=== PATIENT | male | born 1940 | race Two or more races ===

== ENCOUNTER 2018-10-27 09:19 | Inpatient (IN) | payer MEDICARE ==
[~2018-10-27] VITALS: Ht 167.6 cm; Wt 79.9 kg
[2018-10-27] MEDS ORDERED: HYDRALAZINE 20MG/ML VIAL IV ONE ×2 (10:15→13:30)
[2018-10-27 10:26] LABS: BASOPHILS % 0.6 % (0.0-2.0); EOSINOPHILS % 0.8 % (0.0-5.0); HEMATOCRIT. 45.3 % (42.0-52.0); HEMOGLOBIN. 15.5 g/dL (14.0-18.0); LYMPHOCYTES % 15.2 % (20.0-50.0); MEAN CORPUSCULAR HEMOGLOBIN 32.4 pg (28.0-32.0); MEAN CORPUSCULAR VOLUME 94.3 fL (80.0-94.0); MEAN PLATELET VOLUME 9.5 fl (7.4-10.4); MONOCYTES % 7.6 % (2.0-8.0); NEUTROPHILS % 75.8 % (40.0-76.0); PLATELET 183 x1000/uL (130-400); RED CELL DISTRIBUTION WIDTH 13.5 % (11.6-14.6)
[2018-10-27 10:30] LABS: CHLORIDE 107 mEq/L (98-107)
[2018-10-27 10:33] LABS: PROTHROMBIN TIME 10.1 sec (9.6-11.0)
[2018-10-27] MEDS ORDERED: IOHEXOL-350 100 ML BOTTLE ONE (12:17)
[2018-10-27] MEDS ORDERED: ASPIRIN 325MG EC TABLET PO ONE (12:30)
[2018-10-27] MEDS ORDERED: CLONIDINE 0.2MG TABLET PO ONE (12:30)
[2018-10-27] MEDS ORDERED: ACETAMINOPHEN 325MG TABLET PO PRN (16:30)
[2018-10-27] MEDS ORDERED: HYDROCODONE/ACETAMINOPHEN 5/325MG TABLET PO PRN (16:30)
[2018-10-27] MEDS ORDERED: ONDANSETRON HCL 4MG/2ML INJ IV PRN (16:30)
[2018-10-27] MEDS ORDERED: IPRATROPIUM/ALBUTEROL 0.5-3(2.5)MG/3ML NEB INH PRN (16:30)
[2018-10-27] MEDS ORDERED: LOSARTAN POTASSIUM 50 MG TABLET PO NR (16:45)
[2018-10-27 17:22] LABS: CLARITY URINE CLEAR (CLEAR); COLOR URINE YELLOW (YELLOW); KETONES URINE NEGATIVE (NEGATIVE); LEUKOCYTE ESTERASE URINE NEGATIVE (NEGATIVE); NITRITE URINE NEGATIVE (NEGATIVE); OCCULT BLOOD URINE NEGATIVE (NEGATIVE); PH URINE 5.5 (4.5-8.0); PROTEIN URINE NEGATIVE (NEGATIVE); SPECIFIC GRAVITY URINE 1.009 (1.005-1.030); UROBILINOGEN URINE 0.2 E.U./dL (0.2-1.0)
[2018-10-27 17:31] LABS: *AMPHETAMINES SCREEN URINE NEGATIVE (NEGATIVE); *BARBITURATES SCREEN URINE NEGATIVE (NEGATIVE); *BENZODIAZEPINES SCREEN URINE NEGATIVE (NEGATIVE); *COCAINE SCREEN URINE NEGATIVE (NEGATIVE)
[2018-10-27 17:32] LABS: CANNABINOID URINE SCREEN NEGATIVE (NEGATIVE); METHADONE URINE SCREEN NEGATIVE (NEGATIVE); OPIATES URINE SCREEN PRESUMTIVE POSITIVE (NEGATIVE); PHENCYCLIDINE URINE SCREEN NEGATIVE (NEGATIVE)
[2018-10-27] MEDS: CLONIDINE 0.1MG TABLET PO PRN (19:22)
[2018-10-27 22:00] VITALS: BP_SYST 145; BP_DIAS 58; BP_DIAS 68
[2018-10-28] VITALS: BP 119/48
[2018-10-28 04:00] VITALS: BP 127/54
[2018-10-28 08:00] VITALS: BP 169/95
[2018-10-28] MEDS ORDERED: ASPIRIN 325MG EC TABLET PO SCH (09:00)
[2018-10-28] MEDS ORDERED: ENOXAPARIN 40MG/0.4ML SYR SUBCUT SCH (09:00)
[2018-10-28] MEDS ORDERED: ASPIRIN 81MG EC TABLET PO SCH (09:00)
[2018-10-28] MEDS: AMLODIPINE 5MG TABLET PO SCH ×3 (09:00→21:23)
[2018-10-28] MEDS: LOSARTAN POTASSIUM 50 MG TABLET PO SCH ×2 (10:24→21:23)
[2018-10-28] MEDS: CLONIDINE 0.1MG TABLET PO PRN (10:24)
[2018-10-28] MEDS: LISINOPRIL 20MG TABLET PO SCH (10:26)
[2018-10-28 12:00] VITALS: BP 121/76
[2018-10-28 12:27] LABS: BASOPHILS % 0.5 % (0.0-2.0); EOSINOPHILS % 1.9 % (0.0-5.0); HEMATOCRIT. 42.9 % (42.0-52.0); HEMOGLOBIN. 14.6 g/dL (14.0-18.0); LYMPHOCYTES % 18.3 % (20.0-50.0); MEAN CORPUSCULAR HEMOGLOBIN 32.2 pg (28.0-32.0); MEAN CORPUSCULAR VOLUME 94.9 fL (80.0-94.0); MEAN PLATELET VOLUME 9.8 fl (7.4-10.4); NEUTROPHILS % 69.3 % (40.0-76.0); PLATELET 181 x1000/uL (130-400); RED BLOOD CELL COUNT 4.52 mill/uL (4.7-6.1); RED CELL DISTRIBUTION WIDTH 13.5 % (11.6-14.6)
[2018-10-28 12:30] LABS: CHLORIDE 106 mEq/L (98-107)
[2018-10-28 12:39] LABS: LDL CHOLESTEROL 81 mg/dL (5-100)
[2018-10-28 12:42] LABS: CREATINE KINASE 269 IU/L (39-308); HDL CHOLESTEROL 69 mg/dL (40-59); T4 FREE 0.94 ng/dL (0.76-1.46)
[2018-10-28 16:00] VITALS: BP 130/82
[2018-10-28] MEDS: DEXAMETHASONE 4MG/ML 1ML VIAL IV SCH ×2 (17:49→23:09)
[2018-10-28 20:00] VITALS: BP 121/51
[2018-10-28] MEDS: ATORVASTATIN CALCIUM 40MG TABLET PO SCH (21:23)
[2018-10-29] VITALS (62 sets, daily range): BP systolic 90–177; BP diastolic 29–109
[2018-10-29] MEDS: DEXAMETHASONE 4MG/ML 1ML VIAL IV SCH ×3 (05:40→17:34)
[2018-10-29] MEDS ORDERED: NORMAL SALINE 0.9% 10 ML SYR ONE (06:49)
[2018-10-29] MEDS ORDERED: THROMBIN (BOVINE) 5000 UNITS/VIAL TOP ONE (06:49)
[2018-10-29] MEDS ORDERED: LIDOCAINE HCL/EPINEPHRINE 1%-EPI 1:100,000 20 ML VIAL ONE (06:50)
[2018-10-29] MEDS ORDERED: BACITRACIN 50,000 UNITS/VIAL ONE (06:50)
[2018-10-29] MEDS ORDERED: FENTANYL CITRATE/PF 50MCG/ML 2ML VIAL ONE (07:30)
[2018-10-29] MEDS ORDERED: MIDAZOLAM HCL 2 MG/2 ML VIAL ONE (07:30)
[2018-10-29] MEDS ORDERED: ONDANSETRON HCL 4MG/2ML INJ ONE (07:30)
[2018-10-29] MEDS ORDERED: PROPOFOL 200MG/20ML VIAL IV ONE (07:30)
[2018-10-29] MEDS ORDERED: DEXAMETHASONE 4MG/ML 1ML VIAL ONE (07:30)
[2018-10-29] MEDS ORDERED: NEOSTIGMINE METHYLSULFATE 1MG/ML 10 ML VIAL ONE (07:30)
[2018-10-29] MEDS ORDERED: GLYCOPYRROLATE 0.2 MG/ML 2ML VIAL ONE ×3 (07:30→09:19)
[2018-10-29] MEDS ORDERED: ROCURONIUM BROMIDE 10MG/ML VIAL 5ML IV ONE (07:30)
[2018-10-29] MEDS ORDERED: HYDROMORPHONE HCL/PF 2MG/ML CPJ IV PRN (09:00)
[2018-10-29] MEDS: LISINOPRIL 20MG TABLET PO SCH (09:00)
[2018-10-29] MEDS ORDERED: LABETALOL 5MG/ML SYR 20 MG/4 ML SYRINGE IV PRN (09:00)
[2018-10-29] MEDS: LOSARTAN POTASSIUM 50 MG TABLET PO SCH ×2 (09:00→21:13)
[2018-10-29] MEDS ORDERED: MEPERIDINE HCL/PF 25MG/ML CPJ IV PRN (09:00)
[2018-10-29] MEDS ORDERED: ONDANSETRON HCL 4MG/2ML INJ IV PRN (09:00)
[2018-10-29] MEDS: AMLODIPINE 5MG TABLET PO SCH ×2 (09:00→21:13)
[2018-10-29] MEDS ORDERED: CEFAZOLIN SODIUM 1000MG/VIAL ONE (09:01)
[2018-10-29] MEDS ORDERED: HYDROMORPHONE HCL/PF 2MG/ML (OR) ONE (09:01)
[2018-10-29] MEDS ORDERED: SODIUM CHLORIDE 0.9% 10ML VIAL ONE (09:01)
[2018-10-29] MEDS ORDERED: HYDROCODONE/APAP 7.5/325MG 1 TAB TABLET PO PRN (09:45)
[2018-10-29] MEDS ORDERED: HYDROMORPHONE PCA 10MG/50ML IV PRN (10:15)
[2018-10-29] MEDS ORDERED: LORAZEPAM 2MG/ML CPJ IV ONE (10:15)
[2018-10-29] MEDS ORDERED: NALOXONE INJ IV PRN (10:15)
[2018-10-29] MEDS ORDERED: ONDANSETRON INJ IV PRN (10:15)
[2018-10-29] MEDS ORDERED: DIPHENHYDRAMINE INJ IV PRN (10:15)
[2018-10-29] MEDS: NICARDIPINE 100 MG in SODIUM CHLORIDE 0.9% 60 ML IV PRN (10:44)
[2018-10-29] MEDS: MORPHINE SULFATE 4 MG/ML CPJ (NOT FOR IM USE) IV PRN (10:47)
[2018-10-29 12:13] LABS: HEMATOCRIT 42.7 % (42.0-52.0); HEMOGLOBIN 14.4 g/dL (14.0-18.0); MEAN CORPUSCULAR HEMOGLOBIN 32.5 pg (28.0-32.0); MEAN CORPUSCULAR VOLUME 96.4 fL (80.0-94.0); PLATELET 169 x1000/uL (130-400); RED BLOOD CELL COUNT 4.43 mill/uL (4.7-6.1); RED CELL DISTRIBUTION WIDTH 13.4 % (11.6-14.6)
[2018-10-29] MEDS ORDERED: DEXTROSE 50% WATER 50ML SYRINGE IV PRN (12:30)
[2018-10-29] MEDS: DEXT 5%/LACTATED RINGERS 1,000 ML IV SCH ×2 (12:33→17:34)
[2018-10-29 12:40] LABS: CHLORIDE 108 mEq/L (98-107)
[2018-10-29 13:16] LABS: BG BASE EXCESS -5.4 mmol/L (-2.0-2.0); BG CARBOXYHEMOGLOBIN 0.9 % (0.5-1.5); BG DEOXYHEMOGLOBIN 6.8 % (0.0-5.0); BG FRACTION INSPIRED OXYGEN 32; BG HCO3 ACT 21.1 mmol/L (22.0-26.0); BG METHEMOGLOBIN 0.3 % (0.0-1.5); BG OXYGEN SATURATION 93.1 % (92.0-98.5); BG PCO2 44.7 mmHg (35.0-45.0); BG PH 7.291 (7.350-7.450); BG PO2 74.6 mmHg (75.0-100.0); BG SAMPLE SITE A-LINE; BG TOTAL HEMOGLOBIN 14.4 g/dL (12.0-18.0); BG VENT MODE NASAL CANNULA
[2018-10-29] MEDS ORDERED: CEFAZOLIN SODIUM 1000MG/VIAL IV SCH (14:00)
[2018-10-29] MEDS: BLOOD SUGAR DIAGNOSTIC STRIP TEST SCH ×2 (16:42→21:13)
[2018-10-29] MEDS: INSULIN LISPRO 100 UNITS/ML SUBCUT SCH ×2 (16:50→21:14)
[2018-10-29] MEDS: CEFAZOLIN 1000MG PREMIX 50 ML IV SCH (17:34)
[2018-10-29 17:39] LABS: HEMATOCRIT. 42.4 % (42.0-52.0); HEMOGLOBIN. 14.2 g/dL (14.0-18.0); MEAN CORPUSCULAR HEMOGLOBIN 31.9 pg (28.0-32.0); MEAN CORPUSCULAR VOLUME 95.3 fL (80.0-94.0); MEAN PLATELET VOLUME 9.7 fl (7.4-10.4); PLATELET 164 x1000/uL (130-400); RED BLOOD CELL COUNT 4.44 mill/uL (4.7-6.1); RED CELL DISTRIBUTION WIDTH 13.3 % (11.6-14.6)
[2018-10-29 17:47] LABS: CHLORIDE 108 mEq/L (98-107)
[2018-10-29 18:36] LABS: PLATELET ESTIMATE NORMAL
[2018-10-29] MEDS: ATORVASTATIN CALCIUM 40MG TABLET PO SCH (21:12)
[2018-10-30] VITALS (58 sets, daily range): BP systolic 70–162; BP diastolic 26–98
[2018-10-30] MEDS: CEFAZOLIN 1000MG PREMIX 50 ML IV SCH ×3 (00:03→17:56)
[2018-10-30] MEDS: DEXAMETHASONE 4MG/ML 1ML VIAL IV SCH ×4 (00:03→18:21)
[2018-10-30] MEDS: DEXT 5%/LACTATED RINGERS 1,000 ML IV SCH (02:36)
[2018-10-30 05:30] LABS: HEMATOCRIT 43.9 % (42.0-52.0); HEMOGLOBIN 14.9 g/dL (14.0-18.0); MEAN CORPUSCULAR HEMOGLOBIN 32.3 pg (28.0-32.0); MEAN CORPUSCULAR VOLUME 95.2 fL (80.0-94.0); PLATELET 179 x1000/uL (130-400); RED BLOOD CELL COUNT 4.61 mill/uL (4.7-6.1); RED CELL DISTRIBUTION WIDTH 13.3 % (11.6-14.6)
[2018-10-30 05:37] LABS: CHLORIDE 108 mEq/L (98-107)
[2018-10-30] MEDS: INSULIN LISPRO 100 UNITS/ML SUBCUT SCH ×4 (06:16→20:31)
[2018-10-30] MEDS: BLOOD SUGAR DIAGNOSTIC STRIP TEST SCH ×4 (06:16→21:00)
[2018-10-30] MEDS: LISINOPRIL 20MG TABLET PO SCH (09:53)
[2018-10-30] MEDS: AMLODIPINE 5MG TABLET PO SCH (09:53)
[2018-10-30] MEDS: LOSARTAN POTASSIUM 50 MG TABLET PO SCH ×3 (09:53→20:30)
[2018-10-30] MEDS ORDERED: METOPROLOL TARTRATE 50MG TABLET PO SCH (10:30)
[2018-10-30] MEDS: CLONIDINE 0.1MG TABLET PO PRN (11:15)
[2018-10-30] MEDS: NICARDIPINE 100 MG in SODIUM CHLORIDE 0.9% 60 ML IV PRN (12:52)
[2018-10-30] MEDS: MORPHINE SULFATE 4 MG/ML CPJ (NOT FOR IM USE) IV PRN (20:29)
[2018-10-30] MEDS: ATORVASTATIN CALCIUM 40MG TABLET PO SCH (20:30)
[2018-10-30] MEDS: METOPROLOL TARTRATE 50MG TABLET PO SCH (21:00)
[2018-10-31] VITALS (18 sets, daily range): BP systolic 124–152; BP diastolic 59–114
[2018-10-31] MEDS: DEXAMETHASONE 4MG/ML 1ML VIAL IV SCH ×3 (00:22→18:00)
[2018-10-31] MEDS: CEFAZOLIN 1000MG PREMIX 50 ML IV SCH ×3 (00:22→17:00)
[2018-10-31] MEDS: MORPHINE SULFATE 4 MG/ML CPJ (NOT FOR IM USE) IV PRN ×3 (05:04→20:42)
[2018-10-31 05:51] LABS: HEMATOCRIT. 42.9 % (42.0-52.0); HEMOGLOBIN. 14.7 g/dL (14.0-18.0); MEAN CORPUSCULAR HEMOGLOBIN 32.5 pg (28.0-32.0); MEAN PLATELET VOLUME 10.3 fl (7.4-10.4); PLATELET 183 x1000/uL (130-400); RED BLOOD CELL COUNT 4.51 mill/uL (4.7-6.1); RED CELL DISTRIBUTION WIDTH 13.4 % (11.6-14.6)
[2018-10-31 05:57] LABS: CHLORIDE 106 mEq/L (98-107)
[2018-10-31] MEDS: BLOOD SUGAR DIAGNOSTIC STRIP TEST SCH ×5 (06:13→20:52)
[2018-10-31] MEDS: INSULIN LISPRO 100 UNITS/ML SUBCUT SCH ×4 (06:17→21:01)
[2018-10-31] MEDS: METOPROLOL TARTRATE 50MG TABLET PO SCH ×2 (09:39→20:42)
[2018-10-31] MEDS: AMLODIPINE 5MG TABLET PO SCH (09:40)
[2018-10-31] MEDS: LOSARTAN POTASSIUM 50 MG TABLET PO SCH ×2 (09:40→20:42)
[2018-10-31] MEDS: LISINOPRIL 20MG TABLET PO SCH (09:58)
[2018-10-31 12:52] LABS: PLATELET ESTIMATE NORMAL
[2018-10-31] MEDS: ATORVASTATIN CALCIUM 40MG TABLET PO SCH (20:42)
[2018-11-01] VITALS: BP 132/56
[2018-11-01] MEDS: DEXAMETHASONE 4MG/ML 1ML VIAL IV SCH ×4 (00:03→17:38)
[2018-11-01 04:00] VITALS: BP 148/64
[2018-11-01] MEDS: INSULIN LISPRO 100 UNITS/ML SUBCUT SCH ×4 (06:27→20:40)
[2018-11-01] MEDS: BLOOD SUGAR DIAGNOSTIC STRIP TEST SCH ×5 (06:36→20:22)
[2018-11-01 07:04] LABS: HEMATOCRIT 43.3 % (42.0-52.0); HEMOGLOBIN 14.6 g/dL (14.0-18.0); MEAN CORPUSCULAR VOLUME 94.9 fL (80.0-94.0); PLATELET 192 x1000/uL (130-400); RED BLOOD CELL COUNT 4.56 mill/uL (4.7-6.1); RED CELL DISTRIBUTION WIDTH 13.6 % (11.6-14.6)
[2018-11-01 07:43] LABS: CHLORIDE 107 mEq/L (98-107)
[2018-11-01 07:59] VITALS: BP 142/54
[2018-11-01] MEDS: LISINOPRIL 20MG TABLET PO SCH (08:15)
[2018-11-01] MEDS: METOPROLOL TARTRATE 50MG TABLET PO SCH (08:16)
[2018-11-01] MEDS: LOSARTAN POTASSIUM 50 MG TABLET PO SCH ×2 (08:16→20:17)
[2018-11-01] MEDS: AMLODIPINE 5MG TABLET PO SCH ×2 (08:16→20:17)
[2018-11-01] MEDS: MORPHINE SULFATE 4 MG/ML CPJ (NOT FOR IM USE) IV PRN ×2 (08:50→13:44)
[2018-11-01 11:59] VITALS: BP 129/44
[2018-11-01 15:50] VITALS: BP 122/52
[2018-11-01 20:00] VITALS: BP 181/79
[2018-11-01] MEDS: ATORVASTATIN CALCIUM 40MG TABLET PO SCH (20:17)
[2018-11-02] VITALS (7 sets, daily range): BP systolic 127–147; BP diastolic 53–73
[2018-11-02] MEDS: DEXAMETHASONE 4MG/ML 1ML VIAL IV SCH ×2 (06:11→19:59)
[2018-11-02] MEDS: BLOOD SUGAR DIAGNOSTIC STRIP TEST SCH ×4 (06:58→21:16)
[2018-11-02] MEDS: INSULIN LISPRO 100 UNITS/ML SUBCUT SCH ×3 (06:58→20:00)
[2018-11-02] MEDS: LOSARTAN POTASSIUM 50 MG TABLET PO SCH ×2 (08:36→21:25)
[2018-11-02] MEDS: LISINOPRIL 20MG TABLET PO SCH (08:36)
[2018-11-02] MEDS: AMLODIPINE 5MG TABLET PO SCH ×2 (08:36→21:25)
[2018-11-02] MEDS ORDERED: METOPROLOL TARTRATE 50MG TABLET PO SCH (09:00)
[2018-11-02] MEDS ORDERED: DOCUSATE SODIUM 100MG CAPSULE PO PRN (11:30)
[2018-11-02] MEDS ORDERED: LACTULOSE 20G/30ML UDC PO NR (11:30)
[2018-11-02] MEDS: ATORVASTATIN CALCIUM 40MG TABLET PO SCH (21:25)
== END 2018-11-02 22:21 | DRG 471 ==
LOC: ER 09:19 → 5WST 13:57 → EDBEDREQ 14:01 → ENRESERV 19:51 → MICUSO 10-29 10:14 → 8WST 10-31 06:35 → 6WST 11-01 16:53
PROVIDERS: ADMIT Internal Medicine; ATTEND Internal Medicine
PROC: 00NW0ZZ Release Cervical Spinal Cord, Open Approach (ICD-10-PCS; principal; 2018-10-29)
PROC: 0RG2071 Fusion of 2 or more Cervical Vertebral Joints with Autologous Tissue Substitute, Posterior Approach, Posterior Column, Open Approach (ICD-10-PCS; 2018-10-29)
PROC: 4A11X4G Monitoring of Peripheral Nervous Electrical Activity, Intraoperative, External Approach (ICD-10-PCS; 2018-10-29)
DX: M48.02 Spinal stenosis, cervical region (principal); G82.50 Quadriplegia, unspecified; G99.2 Myelopathy in diseases classified elsewhere; I10 Essential (primary) hypertension; I45.10 Unspecified right bundle-branch block; E78.5 Hyperlipidemia, unspecified; E11.9 Type 2 diabetes mellitus without complications; D72.829 Elevated white blood cell count, unspecified; K59.00 Constipation, unspecified; R00.1 Bradycardia, unspecified; R29.6 Repeated falls; I16.0 Hypertensive urgency
CPT/HCPCS: 36415; 36600; 70496; 70498; 70551; 71045; 72040; 72141; 76000; 80048; 80061; 80305; 82375; 82550; 82805; 82962; 83036; 83735; 83880; 84439; 84443; 84484; 85027; 88304; 88311; 93005; 93306; 95925; 95926; 95928; 95929; 97116; 97162; 97164; 97165; 97168; 97530; 97535; 99285; C1713; J0360; J0690; J1100; J1170; J1815; J2060; J2250; J2270; J2405; J2704; J2710; J3010; J3490; J7050; J7121; Q9967